=== PATIENT | male | born 1990 | race Caucasian/White ===

== ENCOUNTER 2022-01-13 18:56 | Emergency (ER) | payer OTHER, SELFPAY ==
[2022-01-13 19:12] VITALS: BP 130/78; PULSE 87; RESP 14; TEMP 36.8; O2SAT 100
--- NOTE | 2022-01-13 19:15 | DI.RAD_ITS ---
Exam(s) XR ELBOW RT COMPLETE EXAM: XR ELBOW RT COMPLETE CLINICAL HISTORY: Trauma, Pain,. TECHNIQUE: 2D digital imaging was performed. Three views. COMPARISON: No exams were available for comparison FINDINGS: BONES: There is a fracture of the radial head the fracture involves the articular surface.. The frac ture fragment is displaced posteriorly as well as rotated. No fractures are seen involving the dista l humerus or ulna. No bony destructive lesion is seen. JOINTS: The elbow is normally aligned. A joint effusion is seen. SOFT TISSUE: Normal. IMPRESSION: Displaced intra-articular fracture of the radial head. DATA REPOSITORY: RADIATION DOSE DELIVERED:
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
[2022-01-13] MEDS: Ibuprofen 600 MG TAB PO (19:57)
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
[2022-01-13] MEDS: oxyCODONE 5 mg/Acetaminophen 325 mg TAB 1 TAB PO (20:46)
[2022-01-13 21:28] VITALS: BP 130/78; PULSE 87; RESP 14; TEMP 36.8; O2SAT 100
[2022-01-13] MEDS: oxyCODONE 5 mg/Acetaminophen 325 mg TAB 2 TAB PO (21:28)
== END 2022-01-13 21:30 | disposition home or self-care (01) ==
PROVIDERS: Emergency Provider Registered Nurse Emergency
DX: S52.121A Displaced fracture of head of right radius, initial encounter for closed fracture (principal); X50.1XXA Overexertion from prolonged static or awkward postures, initial encounter; Y93.55 Activity, bike riding
CPT/HCPCS: 29105; 99284; 73080; 73110